=== PATIENT | female | born 1960 | race Caucasian/White ===

== ENCOUNTER 2018-03-25 08:30 | Emergency (ER) | payer BC ==
[2018-03-25] MEDS: ACETAMINOPHEN 325 MG TAB PO (10:43)
[2018-03-25] MEDS: ONDANSETRON (ODT) 4 MG TAB ODT (10:43)
== END 2018-03-25 12:13 | disposition home or self-care (01) ==
LOC: FTE 08:30
DX: G44.309 Post-traumatic headache, unspecified, not intractable (principal); F07.81 Postconcussional syndrome; F17.210 Nicotine dependence, cigarettes, uncomplicated
CPT/HCPCS: 70450; 71046; 99284-25